=== PATIENT | male | born 1970 | race Caucasian/White ===

== ENCOUNTER 2022-05-21 05:29 | Day surgery (SDC) | payer OTHER ==
[2022-05-20 08:30] VITALS: BMI 24.2
[2022-05-21 09:40] VITALS: TEMP 97.3
[2022-05-21 11:37] VITALS: BP 107/78; PULSE 61; RESP 12
== END 2022-05-21 11:37 | disposition home or self-care (01) ==
LOC: JASU-ENDO 05:29
PROVIDERS: ATTEND Student in an Organized Health Care Education/Training Program
PROC: 0DB78ZX Excision of Stomach, Pylorus, Via Natural or Artificial Opening Endoscopic, Diagnostic (ICD-10-PCS; 2022-05-21)
PROC: 0DB68ZX Excision of Stomach, Via Natural or Artificial Opening Endoscopic, Diagnostic (ICD-10-PCS; 2022-05-21)
PROC: 0DB48ZX Excision of Esophagogastric Junction, Via Natural or Artificial Opening Endoscopic, Diagnostic (ICD-10-PCS; principal; 2022-05-21 09:00)
DX: K29.50 Unspecified chronic gastritis without bleeding (principal); K22.89 Other specified disease of esophagus
CPT/HCPCS: 88305-TC; 88342-TC

== ENCOUNTER 2022-08-13 05:11 | Day surgery (SDC) | payer OTHER ==
[2022-08-08 10:01] VITALS: BMI 24.2
[2022-08-13 15:19] VITALS: PULSE 61
[2022-08-13 15:31] VITALS: BP 139/79; RESP 18; TEMP 98
== END 2022-08-13 15:46 | disposition home or self-care (01) ==
LOC: JASU-ENDO 05:11
PROVIDERS: ATTEND Student in an Organized Health Care Education/Training Program
PROC: 0DBP8ZX Excision of Rectum, Via Natural or Artificial Opening Endoscopic, Diagnostic (ICD-10-PCS; 2022-08-13)
PROC: 0DBH8ZX Excision of Cecum, Via Natural or Artificial Opening Endoscopic, Diagnostic (ICD-10-PCS; 2022-08-13)
PROC: 0DBM8ZX Excision of Descending Colon, Via Natural or Artificial Opening Endoscopic, Diagnostic (ICD-10-PCS; 2022-08-13)
PROC: 0DBK8ZX Excision of Ascending Colon, Via Natural or Artificial Opening Endoscopic, Diagnostic (ICD-10-PCS; principal; 2022-08-13 12:30)
DX: D12.2 Benign neoplasm of ascending colon (principal); D12.4 Benign neoplasm of descending colon; D12.8 Benign neoplasm of rectum; K55.20 Angiodysplasia of colon without hemorrhage
CPT/HCPCS: 88305-TC